=== PATIENT | male | born 1945 | race Caucasian/White ===

== ENCOUNTER 2019-04-05 08:48 | Inpatient (IN) | payer MEDICARE, BC ==
[2019-03-25 12:34] LABS: CLARITY,URINE CLEAR (Clear); COLOR,URINE YELLOW (Yellow); GLUCOSE, URINE NEGATIVE (Neg); KETONES,URINE NEGATIVE (Neg); LEUKOCYTE ESTERASE ,URINE NEGATIVE (Neg); NITRITES, URINE NEGATIVE (Neg); OCCULT BLOOD,URINE TRACE-INTACT (Neg); PROTEIN,URINE NEGATIVE (Neg); UROBILINOGEN,URINE 0.2 E.U/dL (0.2-1.0)
[2019-03-25 12:36] LABS: BASOPHILS # (AUTO) 0.1 X10'3 (0-0.2); EOSINOPHILS # (AUTO) 0.2 X10'3 (0-0.9); EOSINOPHILS % (AUTO) 2.4 % (0-6); LYMPHOCYTES # (AUTO) 1.3 X10'3 (1.1-4.8); LYMPHOCYTES % (AUTO) 16.6 % (21-51); MEAN CORPUSCULAR HEMOGLOBIN 30.2 PG (27.0-31.0); MEAN CORPUSCULAR HGB CONC 34.1 g/dL (33.0-36.5); MEAN CORPUSCULAR VOLUME 88.8 FL (78-98); MEAN PLATELET VOLUME 8.5 FL (7.4-10.4); MONOCYTES # (AUTO) 0.6 X10'3 (0-0.9); MONOCYTES % (AUTO) 7.5 % (2-12); NEUTROPHILS # (AUTO) 5.9 X10'3 (1.8-7.7); NEUTROPHILS % (AUTO) 72.5 % (42-75); PRE OP PLATELET COUNT 238 X10'3 (140-440); RED BLOOD COUNT 5.63 X10'6 (4.70-6.10)
[2019-03-25 12:44] LABS: UA COLLECTION TYPE CLN CATCH MIDSTREAM
[2019-03-25 12:45] LABS: HYALINE CASTS 0-3 /LPF (NEGATIVE); MUCUS STRANDS MODERATE /LPF (Neg); SQUAMOUS EPITHELIAL CELL,UR FEW /LPF (FEW)
[2019-03-25 12:46] LABS: BACTERIA,URINE FEW /HPF (Neg); RBC,URINE 0-2 /HPF (0-2); WBC,URINE 0-4 /HPF (0-4)
[2019-03-25 12:47] LABS: PRE OP PROTIME 10.2 SECONDS (9.0-12.0)
[2019-03-25 12:49] LABS: ALBUMIN 3.5 G/DL (3.4-5.0); ALBUMIN/GLOBULIN RATIO 0.9 (1.1-1.5); ALKALINE PHOSPHATASE 56 IU/L (46-116); BLOOD UREA NITROGEN 24 MG/DL (7-18); BUN/CREATININE RATIO 20.7 (5.4-32.0); CALCIUM 8.8 MG/DL (8.5-10.1); CHLORIDE 108 MMOL/L (99-107); CREATININE 1.16 MG/DL (0.60-1.10); PRE OP ALT 27 U/L (30-65); PRE OP ANION GAP 8 (8-16); PRE OP AST 10 U/L (10-37); PRE OP BILIRUB, TOTAL 0.4 MG/DL (0.0-1.0); PRE OP GLUCOSE 153 MG/DL (70-104); PRE OP POTASSIUM 4.1 MMOL/L (3.4-5.1); PRE OP SODIUM 142 MMOL/L (135-145); TOTAL CARBON DIOXIDE 25.6 MMOL/L (24-32); TOTAL PROTEIN 7.3 G/DL (6.4-8.2); eGFR 61 ML/MIN
[2019-03-25 13:07] LABS: HEMOGLOBIN A1C 6.9 % (4.5-6.2)
[2019-04-05] VITALS (22 sets, daily range): BP systolic 90–141; BP diastolic 50–92
[~2019-04-05] VITALS: Ht 177.8 cm; Wt 110.4 kg
[~2019-04-05 08:48] MED LIST: CALC1TAB PO; DOCU-148 PO; EZET10TA21 PO; FERR325T32 PO; FURO40TA4 PO; LOSA50TA64 PO; NITR0.4T51 SL; ROSU40TA22 PO; acetaminophen 325mg tablet PO ONE; celeCOXIB 100mg capsule PO ONE; famotidine 20mg tablet PO ONE; gabapentin 300mg capsule PO ONE; oxyCODONE SR 10mg (sust. release) tab PO ONE; ringers solution, lacted 1,000 ML IV SCH; tranexamic acid inj. 1,500 MG in normal saline 100ml IV soln 100 ML IV ONE; vancomycin inj 1,500 MG in normal saline 300ml IV soln IV ONE
[2019-04-05] MEDS ORDERED: ROPIVAcaine 0.5% (5mg/ml) 30ml vial ONE ×2 (10:14→12:27)
[2019-04-05] MEDS ORDERED: ringers solution, lacted 1,000 ML IV SCH (10:28)
[2019-04-05] MEDS ORDERED: ondansetron/PF 4mg/2ml inj IV PRN ×2 (10:30→12:40)
[2019-04-05] MEDS ORDERED: HYDROmorphone inj. 0.5 MG/0.5 ML DISP.SYRIN IV PRN (10:30)
[2019-04-05] MEDS ORDERED: morphine 4 MG/ML inj SYRINge IV PRN (10:30)
[2019-04-05] MEDS ORDERED: MIDAZolam 5mg/5ml vial ONE (10:34)
[2019-04-05] MEDS ORDERED: morphine /PF 1mg/ml 10ml inj. ONE (10:34)
[2019-04-05] MEDS ORDERED: fentaNYL/PF 50MCG/1 ML 2ML syringe ONE (10:34)
[2019-04-05] MEDS ORDERED: ceFAZolin 1000mg inj ONE (11:01)
[2019-04-05] MEDS ORDERED: LIDOcaine 1%/PF 5ML 10 MG/ML VIAL ONE (11:05)
[2019-04-05] MEDS ORDERED: propofol inj 20 ML IV ONE ×2 (11:05→13:17)
[2019-04-05] MEDS ORDERED: diphenhydrAMINE 25mg capsule PO PRN ×2 (12:40)
[2019-04-05] MEDS ORDERED: nitroGLYCERIN 0.4mg SUBLingual tab SL PRN (12:40)
[2019-04-05] MEDS ORDERED: magnesium hydroxide 30ml (MOM) UD suspension PO PRN (12:40)
[2019-04-05] MEDS ORDERED: HYDROmorphone 1 mg/ml syringe IV PRN (12:40)
[2019-04-05] MEDS ORDERED: MESSAGE TO PHARMACY PO ONE (12:40)
[2019-04-05] MEDS ORDERED: glucagon, human recombinant 1mg kit SUBCUT PRN (12:40)
[2019-04-05] MEDS ORDERED: bisacodyl 10mg suppository rectal RC PRN (12:40)
[2019-04-05] MEDS ORDERED: insulin Lispro (HumaLOG) vial - multi-dose SQ SCH (12:40)
[2019-04-05] MEDS ORDERED: dextrose ORAL solution 15 GM/59 ML bottle PO PRN ×2 (12:40)
[2019-04-05] MEDS ORDERED: dextrose 50%-water 50ml dispensing syringe IV PRN ×2 (12:40)
[2019-04-05] MEDS ORDERED: acetaminophen 325mg tablet PO PRN (12:40)
--- NOTE | 2019-04-05 12:55 | NUR ---
ARRIVED IN PACU VIA BED FROM OR WITH DR LOMAS IN ATTENDANCE. REPORT RECEIVED. BP 90SYST. HOB FLATTENED. B EAR HUGGER ADDED. FLD INCREASED PER DR BENJAMIN INSTRUCTIONS (500ML FLD CHALLENGE OVER 30MINS) PT AWAKE AND WIGGLING TOES SLIGHTLY
[2019-04-05] MEDS: gabapentin 300mg capsule PO SCH ×2 (13:00→20:19)
--- NOTE | 2019-04-05 13:25 | NUR ---
COMFORTABLE AWAKE SKIN WARM AND DRY
--- NOTE | 2019-04-05 13:45 | NUR ---
DR LOMAS IN TO SEE PT. URINE 30ML AFTER FLD CHALLENGE, ANOTHER 500ML FLD CHALLENGE ORDERED BY DR LOMAS
[2019-04-05] MEDS ORDERED: vancomycin/NS 1 GM ADD-VANTAGE 250 ML IV SCH (20:00)
[2019-04-05] MEDS: atorvastatin 20mg tablet PO SCH (20:19)
[2019-04-05] MEDS: sennosides 8.6mg tablet PO SCH (20:19)
[2019-04-05] MEDS: ascorbic acid 500mg tablet PO SCH (20:19)
[2019-04-05] MEDS: potassium cl 20mEq in 1/2 NS 1,000 ML IV SCH (20:24)
[2019-04-05] MEDS: insulin glargine (Lantus) pen - multi-dose SQ SCH (21:00)
[2019-04-05] MEDS ORDERED: non-formulary drug (Rosuvastatin Calcium 1 TAB) PO SCH (21:00)
[2019-04-06 02:00] VITALS: BP 101/58
[2019-04-06] MEDS: potassium cl 20mEq in 1/2 NS 1,000 ML IV SCH ×3 (04:39→20:11)
[2019-04-06] MEDS: oxyCODONE/APAP 10/325mg tablet PO PRN ×3 (05:38→20:15)
[2019-04-06 06:00] VITALS: BP 102/63
[2019-04-06 06:08] LABS: ANION GAP 7 (8-16); BASOPHILS # (AUTO) 0.1 X10'3 (0-0.2); BASOPHILS % (AUTO) 0.9 % (0-1); CHLORIDE 108 MMOL/L (99-107); EOSINOPHILS # (AUTO) 0.3 X10'3 (0-0.9); EOSINOPHILS % (AUTO) 3.5 % (0-6); HEMATOCRIT 43.1 % (42.0-52.0); HEMOGLOBIN 14.6 g/dl (14.0-17.9); LYMPHOCYTES # (AUTO) 1.3 X10'3 (1.1-4.8); LYMPHOCYTES % (AUTO) 14.8 % (21-51); MEAN CORPUSCULAR HEMOGLOBIN 30.3 PG (27.0-31.0); MEAN CORPUSCULAR HGB CONC 33.9 g/dL (33.0-36.5); MEAN CORPUSCULAR VOLUME 89.4 FL (78-98); MEAN PLATELET VOLUME 8.3 FL (7.4-10.4); MONOCYTES # (AUTO) 0.9 X10'3 (0-0.9); MONOCYTES % (AUTO) 9.9 % (2-12); NEUTROPHILS # (AUTO) 6.2 X10'3 (1.8-7.7); NEUTROPHILS % (AUTO) 70.9 % (42-75); PLATELET COUNT 171 X10'3 (140-440); POTASSIUM 4.3 MMOL/L (3.5-5.1); RED BLOOD COUNT 4.82 X10'6 (4.70-6.10); RED CELL DISTRIBUTION WIDTH 14.8 % (11.5-14.5); SODIUM 141 MMOL/L (135-145); WHITE BLOOD COUNT 8.7 X10'3 (4.5-11.0)
--- NOTE | 2019-04-06 06:19 | NUR ---
Report given to Italia CHRISTIANSON.
--- NOTE | 2019-04-06 06:34 | NUR ---
Received report from Franci CHRISTIANSON
[2019-04-06] MEDS: furosemide 40mg tablet PO SCH (07:53)
[2019-04-06] MEDS: losartan 50mg tablet PO SCH (07:53)
[2019-04-06] MEDS: ascorbic acid 500mg tablet PO SCH ×2 (07:57→20:10)
[2019-04-06] MEDS: ezetimibe 10mg tablet PO SCH (07:57)
[2019-04-06] MEDS: multivitamins, therapeutics tablet PO SCH (07:57)
[2019-04-06] MEDS: gabapentin 300mg capsule PO SCH ×3 (07:57→20:10)
[2019-04-06 09:59] VITALS: BP 118/75
[2019-04-06] MEDS ORDERED: warfarin 5mg tablet PO ONE (10:00)
--- NOTE | 2019-04-06 16:06 | NUR ---
DM consult: Patient's A1c is 6.9; DM ed not warranted at this time. Pt s/p total joint replacement, documented with 100% PO intake on CHO controlled diet meeting nutrient needs. Will continue to follow. Addendum: 04/06/19 at [address] Amended: Links added.
[2019-04-06 18:00] VITALS: BP 104/57
--- NOTE | 2019-04-06 18:10 | NUR ---
Report received from Italia CHRISTIANSON, assumed care of patient.
[2019-04-06] MEDS: celeCOXIB 100mg capsule PO SCH (20:10)
[2019-04-06] MEDS: sennosides 8.6mg tablet PO SCH (20:10)
[2019-04-06] MEDS: atorvastatin 20mg tablet PO SCH (20:11)
[2019-04-06] MEDS: insulin glargine (Lantus) pen - multi-dose SQ SCH (21:00)
[2019-04-06 22:00] VITALS: BP 115/61
[2019-04-07] MEDS: oxyCODONE/APAP 10/325mg tablet PO PRN (05:25)
[2019-04-07 06:00] VITALS: BP 120/65
[2019-04-07 06:12] LABS: BASOPHILS % (AUTO) 0.5 % (0-1); EOSINOPHILS # (AUTO) 0.3 X10'3 (0-0.9); EOSINOPHILS % (AUTO) 3.6 % (0-6); HEMATOCRIT 43.7 % (42.0-52.0); HEMOGLOBIN 14.7 g/dl (14.0-17.9); LYMPHOCYTES # (AUTO) 1.3 X10'3 (1.1-4.8); LYMPHOCYTES % (AUTO) 14.3 % (21-51); MEAN CORPUSCULAR HGB CONC 33.6 g/dL (33.0-36.5); MEAN CORPUSCULAR VOLUME 89.4 FL (78-98); MEAN PLATELET VOLUME 8.4 FL (7.4-10.4); MONOCYTES % (AUTO) 10.7 % (2-12); NEUTROPHILS # (AUTO) 6.4 X10'3 (1.8-7.7); NEUTROPHILS % (AUTO) 70.9 % (42-75); PLATELET COUNT 174 X10'3 (140-440); RED BLOOD COUNT 4.89 X10'6 (4.70-6.10); RED CELL DISTRIBUTION WIDTH 14.8 % (11.5-14.5)
--- NOTE | 2019-04-07 06:22 | NUR ---
Report given to Od[place] CHRISTIANSON.
--- NOTE | 2019-04-07 06:30 | NUR ---
Patient in room [facility] 4018. I have received report from Franci Umana and had the opportunity to ask questions and assume patient care.
--- NOTE | 2019-04-07 06:52 | NUR ---
Call from lab, INR greater than 9
--- NOTE | 2019-04-07 07:24 | NUR ---
MD was called to advise of critical INR of > 9.
[2019-04-07] MEDS ORDERED: phytonadione 10 MG/1 ML amp SQ ONE (07:35)
[2019-04-07] MEDS: losartan 50mg tablet PO SCH (09:35)
[2019-04-07] MEDS: celeCOXIB 100mg capsule PO SCH ×2 (09:35→20:49)
[2019-04-07] MEDS: ascorbic acid 500mg tablet PO SCH ×2 (09:36→20:49)
[2019-04-07] MEDS: multivitamins, therapeutics tablet PO SCH (09:36)
[2019-04-07] MEDS: furosemide 40mg tablet PO SCH (09:36)
[2019-04-07] MEDS: gabapentin 300mg capsule PO SCH ×3 (09:36→20:49)
[2019-04-07] MEDS: ezetimibe 10mg tablet PO SCH (09:38)
[2019-04-07 10:33] VITALS: BP 106/64
[2019-04-07] MEDS ORDERED: acetaminophen 325mg tablet PO PRN (12:40)
[2019-04-07 18:00] VITALS: BP 107/58
--- NOTE | 2019-04-07 18:27 | NUR ---
Problems reprioritized. Patient report given, questions answered & plan of care reviewed with Franci Sarah RN.
[2019-04-07] MEDS: sennosides 8.6mg tablet PO SCH (20:49)
[2019-04-07] MEDS: atorvastatin 20mg tablet PO SCH (20:49)
[2019-04-07] MEDS: insulin glargine (Lantus) pen - multi-dose SQ SCH (20:58)
[2019-04-07 22:00] VITALS: BP 107/61
[2019-04-08 05:30] LABS: BASOPHILS # (AUTO) 0.1 X10'3 (0-0.2); BASOPHILS % (AUTO) 0.9 % (0-1); EOSINOPHILS # (AUTO) 0.4 X10'3 (0-0.9); EOSINOPHILS % (AUTO) 3.9 % (0-6); HEMATOCRIT 42.7 % (42.0-52.0); HEMOGLOBIN 14.8 g/dl (14.0-17.9); LYMPHOCYTES # (AUTO) 1.2 X10'3 (1.1-4.8); LYMPHOCYTES % (AUTO) 12.9 % (21-51); MEAN CORPUSCULAR HEMOGLOBIN 30.5 PG (27.0-31.0); MEAN CORPUSCULAR HGB CONC 34.6 g/dL (33.0-36.5); MEAN PLATELET VOLUME 8.5 FL (7.4-10.4); MONOCYTES # (AUTO) 0.9 X10'3 (0-0.9); MONOCYTES % (AUTO) 9.3 % (2-12); NEUTROPHILS # (AUTO) 7.1 X10'3 (1.8-7.7); PLATELET COUNT 184 X10'3 (140-440); RED BLOOD COUNT 4.85 X10'6 (4.70-6.10); RED CELL DISTRIBUTION WIDTH 15.1 % (11.5-14.5); WHITE BLOOD COUNT 9.7 X10'3 (4.5-11.0)
[2019-04-08] MEDS: oxyCODONE/APAP 10/325mg tablet PO PRN (05:52)
--- NOTE | 2019-04-08 06:13 | NUR ---
Problems reprioritized. Patient report given, questions answered & plan of care reviewed with MEGHAN Saxena.
--- NOTE | 2019-04-08 06:20 | NUR ---
Patient in room [facility] 4018. I have received report from Franci Sarah RN and had the opportunity to ask questions and assume patient care.
[2019-04-08 06:26] VITALS: BP 129/66
[2019-04-08] MEDS ORDERED: ASPI-845 PO (07:55)
[2019-04-08] MEDS: furosemide 40mg tablet PO SCH (08:00)
[2019-04-08] MEDS: losartan 50mg tablet PO SCH (08:39)
[2019-04-08] MEDS: celeCOXIB 100mg capsule PO SCH (08:39)
[2019-04-08 08:40] VITALS: BP 106/59
[2019-04-08] MEDS: ascorbic acid 500mg tablet PO SCH (08:40)
[2019-04-08] MEDS: ezetimibe 10mg tablet PO SCH (08:40)
[2019-04-08] MEDS: multivitamins, therapeutics tablet PO SCH (08:40)
[2019-04-08] MEDS: gabapentin 300mg capsule PO SCH (08:40)
[2019-04-08 10:00] VITALS: BP 141/78
[2019-04-08] MEDS ORDERED: warfarin 2.5mg tablet PO ONE (10:00)
--- NOTE | 2019-04-08 12:31 | NUR ---
Reviewed discharge instructions with pt. Pt verbalized understanding. All of pt's belongings were returned to pt. Pt is alert and oriented and in good spirits. Pt was wheeled downstairs to be driven home by family.
== END 2019-04-08 12:20 | disposition home or self-care (01) | DRG 470 ==
LOC: PAS IN 08:48 → EDSTATUS 10:45 → ORTHO 4S 14:58
PROVIDERS: ADMIT Specialist; ATTEND Specialist
PROC: 0SRB02Z Replacement of Left Hip Joint with Metal on Polyethylene Synthetic Substitute, Open Approach (ICD-10-PCS; principal; 2019-04-05 10:30)
PROC: 5A09357 Assistance with Respiratory Ventilation, Less than 24 Consecutive Hours, Continuous Positive Airway Pressure (ICD-10-PCS; 2019-04-07)
PROC: 5A09357 Assistance with Respiratory Ventilation, Less than 24 Consecutive Hours, Continuous Positive Airway Pressure (ICD-10-PCS; 2019-04-07)
DX: M16.12 Unilateral primary osteoarthritis, left hip (principal); I25.10 Atherosclerotic heart disease of native coronary artery without angina pectoris; G47.30 Sleep apnea, unspecified; E11.9 Type 2 diabetes mellitus without complications; E78.5 Hyperlipidemia, unspecified; Z96.641 Presence of right artificial hip joint; I10 Essential (primary) hypertension; Z96.652 Presence of left artificial knee joint; M25.752 Osteophyte, left hip; E66.9 Obesity, unspecified; Z95.2 Presence of prosthetic heart valve; Z68.34 Body mass index [BMI] 34.0-34.9, adult; Z98.49 Cataract extraction status, unspecified eye; Z88.0 Allergy status to penicillin; Z95.1 Presence of aortocoronary bypass graft; Z95.5 Presence of coronary angioplasty implant and graft; Z79.899 Other long term (current) drug therapy
CPT/HCPCS: 36415; 73502; 80051; 80053; 81001; 82948; 83036; 85025; 85610; 85730; 86885; 86900; 86901; 87081; 93005; 97110; 97116; 97161; 97530; 97535; A6253; A6449; A6454; A7000; C1758; C1776; G0378; J0690; J1815; J2250; J2270; J2704; J2795; J3010; J3370; J3430; J3480; J7030; J7120